=== PATIENT | female | born 1980 | race African-American/Black ===

== ENCOUNTER 2018-12-31 12:18 | Day surgery (SDC) | payer OTHER ==
[~2018-12-31] VITALS: Ht 170.2 cm; Wt 93.9 kg
[2018-12-31] VITALS (9 sets, daily range): BP systolic 108–120; BP diastolic 65–81
--- NOTE | 2018-12-31 07:43 | Pre-Procedure Note/Attestation ---
Pre-Procedure Note/Attestation Complete Prior to Procedure Planned Procedure: right Procedure Narrative: ankle arthroscopy, possible synovectomy, possible chondraplasty Indications for Procedure Pre-Operative Diagnosis: right ankle internal derangement Attestation I attest that I discussed the nature of the procedure; its benefits; risks and complications; and alternatives (and the risks and benefits of such alternatives ), prior to the procedure, with the patient (or the patient's legal phone representative). I attest that, if there was a reasonable possibility of needing a blood transfusion, the patient (or the patient's legal phone representative) was given the [facility] standardized written summary, pursuant to the Dhaval Bright Blood Safety Act ([place] Health and Safety Code # 1645, as amended). I attest that I re-evaluated the patient just prior to the surgery and that there has been no change in the patient's H&P, except as documented below: Braulio Haile MD Dec 31, 2018 07:43
--- NOTE | 2018-12-31 07:43 | Operative Note - PDOC ---
Operative Note Operative Note Pre-op Diagnosis: right ankle internal derangement Procedure: see op report Post-op Diagnosis: same as pre-op plus Operative Findings: consistent w/pre-op dx studies Anesthesia: regional Specimen: none Complications: none Condition: stable Estimated Blood Loss: none Implant(s) used?: No Braulio Haile MD Dec 31, 2018 07:43
[~2018-12-31 12:18] MED LIST: Clindamycin 600mg/D5W 50ml IV ONE; D5 1/2NS 1,000 ML IV SCH; HYDROcodone/Acetamin 5/325 tab ORAL PRN; HYDROmorphone 1mg/ml Carpuject SUBQ PRN; Tylenol #3 tab (300mg/30mg) ORAL PRN; celeBREX 200mg Cap **SURGERY PATIENTS ONLY ORAL ONE; oxyCONTIN 20mg tab ORAL ONE
[2018-12-31] MEDS ORDERED: NKM (13:00)
[2018-12-31] MEDS ORDERED: celeBREX 200mg Cap **SURGERY PATIENTS ONLY ORAL ONE (13:43)
[2018-12-31] MEDS ORDERED: oxyCONTIN 20mg tab ORAL ONE (13:43)
[2018-12-31] MEDS ORDERED: Kenalog-40 1ml Vial ONE (14:39)
[2018-12-31] MEDS ORDERED: Ketorolac 30mg Inj ONE (14:39)
[2018-12-31] MEDS ORDERED: Bupivacaine 0.5% Inj 30 ml vial INJ ONE (14:40)
[2018-12-31] MEDS ORDERED: Duramorph PF 5mg/10ml amp ONE (14:40)
[2018-12-31] MEDS ORDERED: Lidocaine 1% 10mg/ml/EPI 0.01mg/ml 50ml INJ ONE (14:46)
[2018-12-31] MEDS ORDERED: NS Irrig 4000ml IRRIG ONE (15:00)
[2018-12-31] MEDS ORDERED: LR 1000ml ONE (15:00)
[2018-12-31] MEDS ORDERED: Clindamycin 600mg 50 ML IV ONE (15:01)
[2018-12-31] MEDS ORDERED: Midazolam 2mg/2ml Inj ONE (15:03)
[2018-12-31] MEDS ORDERED: fentaNYL 100 mcg/2 mL IV ONE (15:03)
[2018-12-31] MEDS ORDERED: Duramorph PF 5mg/10ml amp IV ONE (15:15)
--- NOTE | 2018-12-31 15:49 | Anethesia Preoperative Eval ---
Anesthesia Pre-op PMH/ROS General Date of Evaluation: Dec 31, 2018 Time of Evaluation: 15:00 Anesthesiologist: ollie ASA Score: ASA 2 Mallampati Score Class I : Soft palate, uvula, fauces, pillars visible Class II: Soft palate, uvula, fauces visible Class III: Soft palate, base of uvula visible Class IV: Only hard plate visible Mallampati Classification: Class II Surgeon: vidhi Diagnosis: ankle pain Surgical Procedure: right ankle arthroscopy Anesthesia History: none Allergies: Coded Allergies: AMOXICILLIN (Verified Allergy, Severe, rash , 12/31/18) Medications: see eMAR Patient NPO?: Yes NPO Date: Dec 31, 2018 NPO Time: 00:01 Past Medical History Cardiovascular: Denies: HTN, CAD, LA, valve dz, arrhythmia, other Pulmonary: Denies: asthma, COPD, HOSSEIN, other Gastrointestinal/Genitourinary: Denies: GERD, CRI, ESRD, other Neurologic/Psychiatric: Denies: dementia, CVA, depression/anxiety, TIA, other Endocrine: Denies: DM, hypothyroidism, steroids, other HEENT: Denies: cataract (L), cataract (R), glaucoma, [place] (L), [place] (R), other Hematology/Immune: Denies: anemia, DVT, bleeding disorder, other Musculoskeletal/Integumentary: Denies: OA, RA, DJD, DDD, edema, other Other: obesity PSxH Narrative: c/s Anesthesia Pre-op Phys. Exam Physician Exam Last Vital Signs Date Time Temp Pulse Resp B/P (MAP) Pulse Ox O2 Delivery O2 Flow Rate FiO2 12/31/18 12:54 Room Air 12/31/18 12:53 97.4 69 18 117/65 97 Airway Exam Mallampati Classification 2 Mallampati Score: Class II MO: full ROM: full Anesthesia Pre-op A/P Labs Urine Test Test 12/31/18 12:30 Urine HCG, Qualitative Negative (NEGATIVE) Studies Pre-op Studies: EKG - s Risk Assessment & Plan Plan: general Pre-Antibiotics Drug: cleociin Given Within 1 Hr of Incision: Yes Time Given: 15:05 Valerie Pennington CRNA Dec 31, 2018 15:49
[2018-12-31] MEDS ORDERED: Propofol 200mg/20ml IV ONE (15:50)
[2018-12-31] MEDS ORDERED: Lidocaine 1% MPF 10mg/ml 5ml ONE (15:50)
[2018-12-31] MEDS ORDERED: fentaNYL 100 mcg/2 mL IV PRN (16:00)
[2018-12-31] MEDS ORDERED: Hydrogen Peroxide 473ml Bottle TOPIC ONE (16:00)
[2018-12-31] MEDS ORDERED: Metoclopramide 10mg/2ml Inj IVP PRN (16:00)
--- NOTE | 2018-12-31 16:12 | Immediate Post-Op Evaluation ---
Immediate Post-Op Evalulation Immediate Post-Op Evalulation Date of Evaluation: Dec 31, 2018 Time of Evaluation: 16:12 IV Fluids: 600 Blood Products: 0 Blood Pressure Systolic: 120 Blood Pressure Diastolic: 80 Pulse Rate: 84 Respiratory Rate: 14 O2 Sat by Pulse Oximetry: 99 Temperature (Fahrenheit): 97.6 Nausea: No Vomiting: No Complications none Patient Status: awake, reacts, patent Hydration Status: adequate Drug: clecin Given Within 1 Hr of Incision: Yes Time Given: 15:05 Valerie Pennington CRNA Dec 31, 2018 16:12
--- NOTE | 2018-12-31 22:00 | Operative Note - Dictated ---
DATE OF OPERATION: 12/31/2018 PREOPERATIVE DIAGNOSIS: Right ankle internal derangement secondary to right ankle sprain. PROCEDURE: Right ankle diagnostic arthroscopy and synovectomy. SURGEON: Braulio Haile M.D. ANESTHESIA: General. INDICATION FOR PROCEDURE: The patient is a pleasant 38-year-old female who had an injury to her right ankle. She had continued pain, had failed conservative treatment, elected to undergo right ankle arthroscopy and possible synovectomy, chondroplasty. Risks, limitations, expectations, complication of the procedure were discussed in detail. All questions addressed. DESCRIPTION OF PROCEDURE: After informed consent was obtained, the patient was brought to the operating room. The patient was placed under general anesthesia. Right leg was prepped and draped in a sterile manner. Time-out was performed. incision was then made. Trocar was introduced into the ankle joint. At this point, hypertrophic scar tissue in lateral gutter was visualized. The anterolateral portal was established using inside-out technique. Shaver was then placed and debridement of the synovial tissue was performed extending into the lateral gutter. Lateral gutter was evaluated. There was no scar tissue or chondral damage. No intra-articular loose bodies. There was no significant chondral damage of the talus or tibial plafond. Camera was placed in the anterolateral portal and synovectomy was completed into the medial gutter. Once that was completed, instruments removed. Portals were closed with 3-0 Monocryl sutures. Steri-Strips and a sterile dressing applied along with a posterior splint. The patient was awoken and taken to recovery room with stable signs. ESTIMATED BLOOD LOSS: None. COMPLICATIONS: None. SPECIMENS: None. IMPLANTS: None. Braulio Haile M.D. DR: Juwan JOB#: [id number] CC:
== END 2018-12-31 17:15 | disposition home or self-care (01) ==
LOC: SUR 12:18
DX: S93.401A Sprain of unspecified ligament of right ankle, initial encounter (principal); Z88.0 Allergy status to penicillin; E66.9 Obesity, unspecified; Z68.32 Body mass index [BMI] 32.0-32.9, adult; X58.XXXA Exposure to other specified factors, initial encounter; Y92.9 Unspecified place or not applicable
CPT/HCPCS: 29895; 81025; J1885; J2250; J2405; J2704; J2765; J3010; J3301; J3490; 94003; 94150; S0077